=== PATIENT | male | born 1955 | race Caucasian/White ===

== ENCOUNTER 2024-05-12 10:15 | Emergency (ER) | payer MEDICARE, OTHER ==
[~2024-05-12] VITALS: Ht 175.3 cm; Wt 93.4 kg
[2024-05-12 10:33] LABS: BASOPHILS 0.4 % (0-2); EOSINOPHILS 1.9 % (0-6); HEMATOCRIT 54.4 % (35.0-50.0); HEMOGLOBIN 18.4 g/dL (12.0-18.0); LYMPHOCYTES 24.4 % (24-44); MCH 31.9 (27-36); MCHC 33.8 g/dl (30-36); MCV 94.5 fl (81-99); MONOCYTES 9.7 % (0-12); NEUTROPHILS 63.6 % (39-80); PLATELET COUNT 222 K/uL (140-440); RBC 5.76 M/ul (4.3-5.7); RDW 13.8 (10.5-15.0)
[2024-05-12 10:52] LABS: ALBUMIN 4.4 g/dL (3.4-5.0); ALBUMIN/GLOBULIN RATIO 1.16 (1.1-2.4); ANION GAP 16.4 (7-21); BUN/CREATININE RATIO 20.68 (6.0-28.6); CALCIUM 9.4 mg/dL (8.5-10.1); CREATININE, SERUM 0.87 mg/dL (0.70-1.30); POTASSIUM 4.4 mmol/L (3.5-5.1); PROTEIN, TOTAL 8.2 g/dL (6.4-8.2)
[2024-05-12 12:49] VITALS: BP 152/79
== END 2024-05-12 12:51 | disposition home or self-care (01) ==
LOC: ED 10:15
PROVIDERS: Internal Medicine
DX: R07.89 Other chest pain (principal); I49.3 Ventricular premature depolarization; Z79.899 Other long term (current) drug therapy
CPT/HCPCS: 36415; 71045; 80053; 83880; 84484; 85025; 93005; 93010; 99285-25

== ENCOUNTER 2025-02-27 11:05 | Emergency (ER) | payer MEDICARE, OTHER ==
[~2025-02-27] VITALS: Ht 175.3 cm; Wt 93.7 kg
--- NOTE | ~2025-02-27 | EKG ---
[facility] [address] [facility] [place], [place] [address] Draft EK completed, results pending confirmation PATIENT NAME: JUAQUINANTONIA LINARES Electrocardiogram DATE OF : 55 PHYSICIAN: PRELIMINARY REPORT #: [id number] REPORT IS CONFIDENTIAL AND NOT TO BE RELEASED WITHOUT AUTHORIZATION
[~2025-02-27 11:05] MED LIST: HYDROCODON-ACE1 EA10 PO
--- OUTSIDE RECORDS SUMMARY | 2025-02-27 11:06 | XMS ---
PreManage Notification: ANTONIA REZA Security Insurance Claims Examiner Events No recent Security Events currently on file CRITERIA MET - PDMP CARE PROVIDERS -, [facility] Dentist: [facility] Current [place] PHONE: [phone] -[place]- Dentist: [facility] Current [facility] PHONE: [phone] [facility]: [facility] Current FAMILY PHONE: [phone] Ampar[facility] has no Care Guidelines for this patient. E.D. VISIT COUNT (12 MO.) 2 SAMMY Trinh TOTAL 2 NOTE: Visits indicate total known visits. ED/UCC VISIT TRACKING (12 MO.) 02/27/2025 11:05 [facility] [place] TYPE: Emergency COMPLAINT: - CHEST PAIN 05/12/2024 10:15 [facility]MY [facility] [place] TYPE: Emergency COMPLAINT: - CHEST PAIN DIAGNOSES: - Other chest pain - Other buttermaker continuous churn (current) drug therapy - Ventricular premature depolarization INPATIENT VISIT TRACKING (12 MO.) No inpatient visits to display in this time frame [id number]
[2025-02-27] MEDS ORDERED: ASPIRIN 81 MG CHEW PO ONE (11:15)
[2025-02-27] MEDS ORDERED: NITROGLYCERIN 0.4 MG SUBL SL PRN (11:15)
[2025-02-27] MEDS ORDERED: LOSARTAN POTASS25 MG PO (11:18)
[2025-02-27 11:29] LABS: BASOPHILS 0.5 % (0.2-1.2); EOSINOPHILS 1.0 % (0.8-7.0); LYMPHOCYTES 20.6 % (21.8-53.1); MCH 31.5 PG (25.7-32.2); MCHC 34.8 g/dL (32.3-36.5); MCV 90.8 fL (79.0-92.2); MONOCYTES 8.2 % (5.3-12.2); NEUTROPHILS 69.0 % (34.0-67.9); RBC 5.42 M/uL (4.63-6.08)
[2025-02-27 11:52] LABS: ALT (SGPT) 44.0 U/L (14-59); AST (SGOT) 25.0 U/L (15-37); GLOMERULAR FILTRATION RATE,EST 97.0 mL/min (>60); PROTEIN, TOTAL 7.7 g/dL (6.4-8.2); UREA NITROGEN 13.0 mg/dL (7-18)
[2025-02-27] MEDS ORDERED: NITROGLYCERIN0.4 MG SL (13:24)
[2025-02-27 13:35] VITALS: BP 142/90
== END 2025-02-27 13:35 | disposition home or self-care (01) ==
LOC: ED 11:05
PROVIDERS: Emergency Medicine
DX: R07.89 Other chest pain (principal); Z79.899 Other long term (current) drug therapy
CPT/HCPCS: 36415; 71045; 80053; 83735; 84484; 85025; 93005; 93010; 99285-25; A9270